=== PATIENT | male | born 1985 | race Caucasian/White ===

== ENCOUNTER 2016-09-28 06:16 | Emergency (ER) | payer OTHER ==
[~2016-09-28] VITALS: Ht 170.2 cm; Wt 55.7 kg
[2016-09-28 06:22] VITALS: TEMP 36.6; O2SAT 100; Ht 170.2 cm; Wt 55.7 kg
--- NOTE | 2016-09-28 07:17 | EMERGENCY ROOM VISIT NOTE ---
History First contact with patient: 06:39 Chief Complaint: SEIZURE Stated Complaint: SEIZURE Nursing Triage Summary: [place] home this morning around 0200 and went to bed around 0400, woke to find pt having a seizure then pt fell off the bed, pt has abrasion to mid back, pt denies pain at this time. no pmhx of seizures History of Present Illness The patient is a 31 year old male who presents to the Emergency Room with complaints of seizure around 5:30am. His woke up this morning to find her shaking all 4 limbs in bed in a flexed position, teeth clenched and drooling. She did not witness the start of the seizure but the part she id witness lasted 1-2 minutes. He fell off the bed in this time and she couldn't roll him on his side so tried to open his mouth and he bit her finger. He was not incontinent of stool or urine. After the event he was post ictal (in a trance and unable to answer questions appropriately) for around 15-30 minutes not realizing what happened. He now feels back to his normal self but cannot remember any of the events this morning. He has felt generally well for the last 2 days but has been falling asleep around 4am and not getting much sleep. He has been fasting for Ramadan in addition. Last night he was driving back from [place] and got back around 2: 40am, getting to bed around 5am. During that car journey he had two cups of coffee which is unusual for him and he experienced lef sided chest discomfort, 1 /10 severity lasting for 5-10 minutes around 1am, no radiation, no associated palpitations, diaphoresis or nausea. Review of Systems See HPI for pertinent positives & negatives. A total of 10 systems reviewed and were otherwise negative. Past Medical/Surgical History None Social History Smoking Status: Never Smoker Smokeless Tobacco Use: No Alcohol Use: none Drug Use: none Marital Status: Housing Status: lives with family Current/Historical Medications Scheduled Levetiracetam (Keppra), 1 TAB PO DIRECTED Allergies Coded Allergies: No Known Allergies (Unverified , 09/28/16) Physical Exam Vital Signs Date Time Temp Pulse Resp B/P (MAP) Pulse Ox O2 Delivery O2 Flow Rate FiO2 09/28/16 10:10 62 17 112/60 98 09/28/16 08:21 64 17 110/64 97 Room Air 09/28/16 06:22 100 Room Air 09/28/16 06:22 36.6 84 18 104/64 100 Room Air Physical Exam VITAL SIGNS: were reviewed as above GENERAL: no acute distress SKIN: Warm dry and pink, no rashes, no lesions HEAD: Normocephalic and atraumatic EYES: extraocular muscles intact, pupils equal and reactive to light OROPHARYNX: non erythematous, clear and moist NECK: Supple, no adenopathy or meningismus LUNGS: clear to auscultation, no accessory muscle use HEART: Regular rate and rhythm, heart sounds 1+2, no murmurs ABDOMEN: Soft and nontender, bowel sounds normal BACK: no CVA tenderness EXTREMITIES: Warm and well perfused, no calf tenderness/swelling, no pedal edema. NEUROLOGICALLY: Awake alert and oriented. Cranial nerves 2-12 intact. Cerebellar testing is within normal limits. There is no nystagmus. There is no facial droop. Speech is clear. Vision is grossly normal. Upper and lower motor and sensory examination normal. Knee and biceps reflexes 1+ equal. Downgoing plantars. MUSCULOSKELETAL: Good muscle tone. No evidence of trauma Medical Decision & Procedures ER Provider Diagnostic Interpretation: CT HEAD WITHOUT CONTRAST (CT) CLINICAL HISTORY: first seizure COMPARISON STUDY: No previous studies for comparison. TECHNIQUE: Axial CT of the brain is performed from the vertex to the skull base. IV contrast was not administered for this examination. CT DOSE: 537.48 mGy.cm FINDINGS: No intra or extra-axial mass lesions are visualized. There is no CT evidence of acute cortical infarction. There is no evidence of midline shift. There is no acute hemorrhage. No calvarial fractures are visualized. There is no evidence of pathologic ventricular dilatation. There is no evidence of acute sinusitis IMPRESSION: Normal noncontrast head CT Electronically signed by: Gunnar Manley M.D. 09/28/2016 7:44 AM Dictated Date/Time: 09/28/2016 7:43 AM Laboratory Results 09/28/16 07:25 Red Blood Count 4.97, Mean Corpuscular Volume 84.7, Mean Corpuscular Hemoglobin 29.0, Mean Corpuscular Hemoglobin Concent 34.2, Mean Platelet Volume 10.7, Neutrophils (%) (Auto) 77.3, Lymphocytes (%) (Auto) 15.5, Monocytes (%) (Auto) 5.0, Eosinophils (%) (Auto) 1.4, Basophils (%) (Auto) 0.4, Neutrophils # (Auto) 8.65, Lymphocytes # (Auto) 1.73, Monocytes # (Auto) 0.56, Eosinophils # (Auto) 0.16, Basophils # (Auto) 0.05 09/28/16 07:25 Test 09/28/16 07:25 09/28/16 08:47 White Blood Count 11.19 K/uL (4.8-10.8) Red Blood Count 4.97 M/uL (4.7-6.1) Hemoglobin 14.4 g/dL (14.0-18.0) Hematocrit 42.1 % (42-52) Mean Corpuscular Volume 84.7 fL (80-100) Mean Corpuscular Hemoglobin 29.0 pg (25-34) Mean Corpuscular Hemoglobin Concent 34.2 g/dl (32-36) Platelet Count 213 K/uL (130-400) Mean Platelet Volume 10.7 fL (7.4-10.4) Neutrophils (%) (Auto) 77.3 % Lymphocytes (%) (Auto) 15.5 % Monocytes (%) (Auto) 5.0 % Eosinophils (%) (Auto) 1.4 % Basophils (%) (Auto) 0.4 % Neutrophils # (Auto) 8.65 K/uL (1.4-6.5) Lymphocytes # (Auto) 1.73 K/uL (1.2-3.4) Monocytes # (Auto) 0.56 K/uL (0.11-0.59) Eosinophils # (Auto) 0.16 K/uL (0-0.5) Basophils # (Auto) 0.05 K/uL (0-0.2) RDW Standard Deviation 39.8 fL (36.4-46.3) RDW Coefficient of Variation 12.9 % (11.5-14.5) Immature Granulocyte % (Auto) 0.4 % Immature Granulocyte # (Auto) 0.04 K/uL (0.00-0.02) Anion Gap 8.0 mmol/L (3-11) Est Creatinine Clear Calc Drug Dose 83.6 ml/min Estimated GFR () 114.9 Estimated GFR (Non- 99.1 BUN/Creatinine Ratio 19.1 (10-20) Calcium Level 8.5 mg/dl (8.5-10.1) Magnesium Level 2.5 mg/dl (1.8-2.4) Total Bilirubin 0.2 mg/dl (0.2-1) Aspartate Amino Transf (AST/SGOT) 12 U/L (15-37) Alanine Aminotransferase (ALT/SGPT) 19 U/L (12-78) Alkaline Phosphatase 73 U/L (45-117) Troponin I < 0.015 ng/ml (0-0.045) Total Protein 7.3 gm/dl (6.4-8.2) Albumin 3.8 gm/dl (3.4-5.0) Globulin 3.5 gm/dl (2.5-4.0) Albumin/Globulin Ratio 1.1 (0.9-2) Urine Opiates Screen NEG (NEG) Urine Methadone, Qualitative NEG (NEG) Urine Barbiturates NEG (NEG) Urine Phencyclidine (PCP) Level NEG (NEG) Ur Amphetamine/Methamphetamine NEG (NEG) MDMA (Ecstasy) Screen NEG (NEG) Urine Benzodiazepines Screen NEG (NEG) Urine Cocaine Metabolite NEG (NEG) Urine Marijuana (THC) NEG (NEG) ECG Indication: other (seizure) Rate (beats per minute): 65 Rhythm: normal sinus Findings: no acute ischemic change Comparison ECG Date: no prior available ED Course 6:35am Complete history and physical taken 7:05am Discussed case with Dr Alvarez 7:40am Dr Alvarez separately performed history and physical 8:40am Re-assessed patient who felt back to his normal self, urine tox pending. 9:31am Re-assessed patient, all questions answered and he was discharged with prescription for Keppra Medical Decision Prior records/ancillary studies reviewed. Patient placed in seizure precautions immediately upon arrival. Nursing notes reviewed. Additional history obtained from patient and his . The patient's history was concerning for a seizure. Differential diagnosis: Etiologies such as infection, hypoglycemia, electrolyte abnormalities, cardiac sources, intracerebral event, trauma, toxicologic, neurologic, as well as others were entertained. Physical examination: As above. No signs of trauma. ER treatment provided: The patient was back to his normal self Diagnostics interpretation by me: ECG: as above The labs were unremarkable, mild elevated WBC likely due to seizure only, no signs or symptoms of infection. Imaging studies: CT head as above unremarkable Consultation: The patient has a possible history of a seizure but this is the first witnessed episode. No concerning physical findings or historical points were noted. By the evaluation outlined above emergent etiologies such as infection, hypoglycemia, electrolyte abnormalities, cardiac sources, intracerebral event, toxicologic, neurologic,as well as others were deemed relatively unlikely. This was most likely precipitated due to caffeine intake and lack of sleep. The patient was counseled not to drive until cleared in follow-up and seizure precautions given. I gave my usual and customary discussion regarding these issues. 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 The patient was informed about the findings as listed above. All questions were answered and he was pleased with the treatment. Return instructions were outlined and the patient was discharged in stable condition. Outpatient prescription management: Keppra 500 mg BID for 2 weeks then 1000mg BID for 2 weeks Referral: The patient was referred back to their PCP for follow-up in 2 to 3 days for a recheck of the current condition. Impression Primary Impression: Seizure Departure Information Dispostion Home / Self-Care Condition GOOD Prescriptions Levetiracetam (KEPPRA) 500 Mg Tab 1 TAB PO DIRECTED for 30 Days, #90 TAB 0 Refills take 1 tablet twice a day for 2 weeks, then take 2 tablets twice a day for 2 weeks Prov: Chano Sanabria MD 09/28/16 Referrals [facility] (PCP) Patient Instructions My [facility] Resident Tracking Resident Involvement: Resident Care Provided Care Provided: Adult ED
[2016-09-28 07:39] LABS: BASO % 0.4 %; BASO ABS # 0.05 K/uL (0-0.2); COMPLETE YES; EOS % 1.4 %; HEMATOCRIT 42.1 % (42-52); IG% 0.4 %; LYMPH % 15.5 %; LYMPH ABS # 1.73 K/uL (1.2-3.4); MEAN CELL VOLUME 84.7 fL (80-100); MEAN CORPUSCULAR HGB CONC 34.2 g/dl (32-36); MEAN PLATELET VOLUME 10.7 fL (7.4-10.4); NEUT % 77.3 %; PLATELET COUNT 213 K/uL (130-400); RED BLOOD COUNT 4.97 M/uL (4.7-6.1); WHITE BLOOD COUNT 11.19 K/uL (4.8-10.8)
--- NOTE | 2016-09-28 07:46 | DIAGNOSTIC IMAGING REPORT ---
CT HEAD WITHOUT CONTRAST (CT) CLINICAL HISTORY: first seizure COMPARISON STUDY: No previous studies for comparison. TECHNIQUE: Axial CT of the brain is performed from the vertex to the skull base. IV contrast was not administered for this examination. CT DOSE: 537.48 mGy.cm FINDINGS: No intra or extra-axial mass lesions are visualized. There is no CT evidence of acute cortical infarction. There is no evidence of midline shift. There is no acute hemorrhage. No calvarial fractures are visualized. There is no evidence of pathologic ventricular dilatation. There is no evidence of acute sinusitis IMPRESSION: Normal noncontrast head CT Electronically signed by: Gunnar Manley M.D. 09/28/2016 7:44 AM Dictated Date/Time: 09/28/2016 7:43 AM
[2016-09-28 07:55] LABS: ALT/SGPT 19 U/L (12-78); AST/SGOT 12 U/L (15-37); BLOOD UREA NITROGEN 19 mg/dl (7-18); BUN/CREATININE RATIO 19.1 (10-20); CALCIUM 8.5 mg/dl (8.5-10.1); CARBON DIOXIDE 27 mmol/L (21-32); CHLORIDE 106 mmol/L (98-107); GLUCOSE 91 mg/dl (70-99); MAGNESIUM 2.5 mg/dl (1.8-2.4); POTASSIUM 3.8 mmol/L (3.5-5.1); SODIUM 141 mmol/L (136-145)
[2016-09-28 08:00] LABS: ALB/GLOB RATIO 1.1 (0.9-2); ALKALINE PHOSPHATASE 73 U/L (45-117)
[2016-09-28 09:22] LABS: BENZODIAZEPINE, URINE NEG (NEG); COCAINE,URINE NEG (NEG); PHENCYCLIDINE, URINE NEG (NEG)
[2016-09-28] MEDS ORDERED: LEVE500T13 PO (09:24)
[2016-09-28 10:10] VITALS: BP 112/60; PULSE 62; O2SAT 98
--- NOTE | 2016-10-20 12:39 | EMERGENCY ROOM VISIT NOTE ---
ED Visit Note First contact with patient: 06:39 Resident Physician Supervision Note: I interviewed and examined the patient. Discussed with Dr. Sanabria and agree with findings and plan as documented in the note. Any exceptions or clarifications are listed here: [None] Documented By: Donis Alvarez
== END 2016-09-28 10:11 | disposition home or self-care (01) ==
LOC: EDBD 06:16 → C.EDB 06:17
DX: R56.9 Unspecified convulsions (principal)

== ENCOUNTER → 2016-10-08 | Outpatient (CLI) | payer OTHER ==
[~2016-10-08] MED LIST: GADAVIST IV PRN; LEVE500T13 PO
--- NOTE | 2016-10-08 16:10 | DIAGNOSTIC IMAGING REPORT ---
Brain MRI WITH AND WITHOUT CONTRAST HISTORY: NEW ONSET SEIZURES TECHNIQUE: Multiplanar multisequence MRI of the brain was performed both before and after the intravenous administration of contrast. COMPARISON STUDY: Head CT 09/28/2016. FINDINGS: There are no areas of restricted diffusion to suggest acute infarction. The midline structures are intact. The paranasal sinuses are clear. The mastoid air cells are clear. The ventricles and sulci are within normal limits for age. There is no mass, hematoma, midline shift. The major vascular flow-voids at the skull base are well maintained. Postcontrast sequences show no areas of abnormal enhancement. IMPRESSION: No acute intracranial abnormality. Electronically signed by: Pablito Roque M.D. 10/08/2016 4:08 PM Dictated Date/Time: 10/08/2016 3:55 PM
== END | disposition home or self-care (01) ==
LOC: C.MRI 15:01
PROVIDERS: ATTEND Family Medicine
DX: R56.9 Unspecified convulsions (principal)

== ENCOUNTER → 2016-10-13 | Outpatient (CLI) | payer OTHER ==
[~2016-10-13] MED LIST changes: -GADAVIST IV PRN
--- NOTE | 2016-10-14 11:46 | EEG Procedure Note ---
EEG Procedure Note Date of Service Oct 13, 2016. Start / End Times Start Time: 1:58 PM End Time: 2:56 PM Referring Physician Elayne Villa History This is a 31-year-old male with new onset seizures. Home Medication List Scheduled Levetiracetam (Keppra), 1 TAB PO DIRECTED Description This is a 21 electrode EEG with a single channel dedicated to limited EKG. The electrodes were placed in accordance with the International 10-20 system. At the start of the recording the patient was in an awake state. Background was well organized and composed of symmetric mixed alpha and beta frequencies. There was a symmetric well-formed moderate amplitude 10-11 Hz posterior dominant rhythm that was reactive to eye opening and closure. Hyperventilation was not done. Intermittent photic stimulation at various frequencies produced no abnormalities. There was no state changes or sleep transients. Interpretation This is a normal awake only 1hr extended EEG. There was no electrographic seizures or epileptiform discharges. Clinical Correlation A normal EEG does not rule out epilepsy if there is a strong clinical suspicion.
== END | disposition home or self-care (01) ==
LOC: C.NEUR 13:50
PROVIDERS: ATTEND Family Medicine
DX: R56.9 Unspecified convulsions (principal)